=== PATIENT | male | born 1965 | race American Indian/Alaskan Native ===

== ENCOUNTER 2017-10-23 21:36 | Emergency (ER) | payer OTHER ==
[2017-10-24 09:00] VITALS: BP 129/83
--- NOTE | 2017-10-24 09:25 | Emergency Department Report ---
- General Chief complaint: Skin Rash Stated complaint: INSECT BITE RT ANKLE Time Seen by Provider: 10/24/17 09:11 Source: patient Mode of arrival: Ambulatory Limitations: No Limitations - History of Present Illness Initial comments: Patient is a 52-year-old male who is presenting with some type of bite to the right anterior leg. Patient was at work working as a several other coworkers saw some small snakes. Patient states he felt something on his leg did not see an insect or snake per se. Patient states that when he got home at 6 PM last night he noticed 2 small punctures that were erythematous. Patient's had minimal pain. He states that he's had no shortness of breath fevers chills. Patient states the discomfort as a 5 out of 10. His aching and throbbing sensation. - Related Data Previous Rx's Medication Instructions Recorded Last Taken Type Sulfamethoxazole/Trimethoprim 1 each PO BID #14 tablet 10/24/17 Unknown Rx [Bactrim DS TAB] traMADol [Ultram] 50 mg PO Q6HR PRN #12 tablet 10/24/17 Unknown Rx Allergies Allergy/AdvReac Type Severity Reaction Status Date / Time No Known Allergies Allergy Unverified 10/23/17 22:50 Abscess Boil HPI - HPI Chief Complaint: Skin Rash Stated Complaint: INSECT BITE RT ANKLE Time Seen by Provider: 10/24/17 09:11 Home Medications: Previous Rx's Medication Instructions Recorded Last Taken Type Sulfamethoxazole/Trimethoprim 1 each PO BID #14 tablet 10/24/17 Unknown Rx [Bactrim DS TAB] traMADol [Ultram] 50 mg PO Q6HR PRN #12 tablet 10/24/17 Unknown Rx Allergies/Adverse Reactions: Allergies Allergy/AdvReac Type Severity Reaction Status Date / Time No Known Allergies Allergy Unverified 10/23/17 22:50 ED Review of Systems ROS: Stated complaint: INSECT BITE RT ANKLE Other details as noted in HPI Comment: All other systems reviewed and negative ED Past Medical Hx - Past Medical History Hx Hypertension: Yes - Social History Smoking Status: Never Smoker Substance Use Type: None - Medications Home Medications: Home Medications Medication Instructions Recorded Confirmed Last Taken Type Sulfamethoxazole/Trimethoprim 1 each PO BID #14 tablet 10/24/17 Unknown Rx [Bactrim DS TAB] traMADol [Ultram] 50 mg PO Q6HR PRN #12 tablet 10/24/17 Unknown Rx ED Physical Exam - General Limitations: No Limitations General appearance: alert, in no apparent distress - Head Head exam: Present: atraumatic, normocephalic - Eye Eye exam: Present: normal appearance - ENT ENT exam: Present: mucous membranes moist - Neck Neck exam: Present: normal inspection - Respiratory Respiratory exam: Present: normal lung sounds bilaterally. Absent: respiratory distress, wheezes, rales, rhonchi - Cardiovascular Cardiovascular Exam: Present: regular rate, normal rhythm. Absent: systolic murmur, diastolic murmur, rubs, gallop - GI/Abdominal GI/Abdominal exam: Present: soft, normal bowel sounds. Absent: distended, tenderness, guarding, rebound - Rectal Rectal exam: Present: deferred - Extremities Exam Extremities exam: Present: normal inspection - Back Exam Back exam: Present: normal inspection - Neurological Exam Neurological exam: Present: alert, oriented X3 - Psychiatric Psychiatric exam: Present: normal affect, normal mood - Skin Skin exam: Present: warm, dry, intact, normal color, other (patient has 2 small superficial appearing puncture-like lesions on the anterior right lower extremity just proximal to the ankle. There is minimal erythema surrounding this area. There is no ankle or knee swelling. There is no ecchymosis. There is no fluctuance. Patient also has a small scratch that he had several days ago but does also have bilateral quarter size area of erythema surrounding this with induration. This has no fluctuance. Some anterior chan midway along the right lower extremity.). Absent: rash ED Course Vital Signs 10/23/17 10/24/17 10/24/17 22:45 06:07 08:59 Temperature 99.4 F 98.1 F 98.3 F Pulse Rate 107 H 88 94 H Respiratory 18 20 18 Rate Blood Pressure 142/72 141/99 Blood Pressure 129/83 [Right] O2 Sat by Pulse 98 97 98 Oximetry ED Medical Decision Making - Medical Decision Making At the time of the exam the patient is being monitored greater than 12 hours. The patient has had no increased swelling to this area. This was made by the patient has not exhibited any signs that this was from a snake. Patient was started on antibiotics will be discharged home. Critical care attestation.: If time is entered above; I have spent that time in minutes in the direct care of this critically ill patient, excluding procedure time. ED Disposition Clinical Impression: Bite, snake, non-venomous Qualifiers: Encounter type: initial encounter Qualified Code(s): W59.11XA - Bitten by nonvenomous snake, initial encounter Disposition: TO HOME OR SELFCARE Is pt being admited?: No Does the pt Need Aspirin: No Condition: Stable Instructions: Snake Bite (ED) Prescriptions: Sulfamethoxazole/Trimethoprim [Bactrim DS TAB] 1 each PO BID #14 tablet traMADol [Ultram] 50 mg PO Q6HR PRN #12 tablet PRN Reason: Pain Referrals: ALANA LOPEZ MD [Primary Care Provider] - 3-5 Days Forms: Work/School Release Form(ED)
[2017-10-24] MEDS ORDERED: BOOSTRIX IM ONE (09:27)
== END 2017-10-24 09:39 | disposition home or self-care (01) ==
LOC: ED 21:36
DX: S81.851A Open bite, right lower leg, initial encounter (principal); I10 Essential (primary) hypertension; W59.11XA Bitten by nonvenomous snake, initial encounter; Y93.89 Activity, other specified; Y92.89 Other specified places as the place of occurrence of the external cause; Y99.8 Other external cause status
CPT/HCPCS: 90471; 90715